=== PATIENT | female | born 1960 | race American Indian/Alaskan Native ===

== ENCOUNTER 2019-10-14 09:09 | Outpatient (CLI) | payer MEDICAID ==
--- NOTE | 2019-10-14 10:12 | Mammography Report ---
DIGITAL SCREENING MAMMOGRAM WITH CAD, 10/14/2019 INDICATION: Routine screening mammography. ROUTINE TECHNIQUE: Digital bilateral 2D mammography was obtained in the craniocaudal and mediolateral obliq ue projections. This examination was interpreted with the benefit of Computer-Aided Detection analysi s. COMPARISON: None. Patient has reportedly not had a mammogram in several years per the sign in sheet. FINDINGS: Breast Density: There are scattered areas of fibroglandular density. There is no evidence of suspicious calcifications or architectural distortion in either breast. There is however a 6 mm nodule in the left breast, posterior depth, 12:00 position. A couple other nodules in the left breast are present with biopsy clips. IMPRESSION: Follow up recommendation: Ultrasound Category 0: Incomplete. Needs additional imaging evaluation and/or prior mammograms for comparison. A "normal" or negative report should not discourage follow up or biopsy of a clinically significant f inding. A written summary of these findings will be mailed to the patient. The patient will be entered into a mammography reporting system which will generate a reminder letter for the patient's next appointmen t at the appropriate interval. The [employer] recommends yearly mammograms starting at age 40 and continuing as l colette as a woman is in good health. Breast MRI is recommended for women with an approximate 20-25% or greater lifetime risk of breast cancer, including women with a strong family history of breast or ova jeannine cancer or who have been treated for Hodgkin's disease. Signer Name: Torey Mathias MD Signed: 10/14/2019 10:08 AM Workstation Name: [id number]
== END 2019-10-14 09:10 | disposition home or self-care (01) ==
LOC: MAMMO 09:09
PROVIDERS: ATTEND Internal Medicine
DX: Z12.31 Encounter for screening mammogram for malignant neoplasm of breast (principal); N64.89 Other specified disorders of breast
CPT/HCPCS: 77067

== ENCOUNTER 2019-11-11 08:30 | Outpatient (CLI) | payer MEDICAID ==
--- NOTE | 2019-11-11 13:03 | Ultrasound Report ---
LEFT DIGITAL DIAGNOSTIC MAMMOGRAM WITH CAD 11/11/2019 LEFT LIMITED BREAST ULTRASOUND INDICATION: [id number] abnormal and inconclusive findings on diagnostic imagi TECHNIQUE: Digital left mammographic imaging was performed. Spot compression views were obtained. Li mited ultrasound was performed. This examination was interpreted with the benefit of Computer-Aided D etection (CAD) analysis. COMPARISON: Recent screening mammogram, 10/14/2019 FINDINGS: Breast Density: There are scattered areas of fibroglandular density. MAMMOGRAPHIC FINDINGS: There is a 7 mm well-circumscribed round nodule in the left breast at 12:00, close to the chest wall. ULTRASOUND FINDINGS: Targeted ultrasound evaluation was performed of the area of interest. There is a 6 mm smoothly marginated oval solid mass in the left breast at 11-12:00 7 cm deep to the nipple. T his appears to correlate with benign-appearing nodule noted mammographically. The overall appearance is most suggestive of a benign fibroadenoma. IMPRESSION: Probably benign solid oval mass in the left breast, 11-12:00. I suspect this will be a fi broadenoma. As there are no older prior mammograms for comparison, recommend 6 month follow-up left m ammogram to assess stability. Follow up recommendation: Left 6 month follow-up mammogram BI-RADS Category 3: Probably Benign. Followup in 6 months. A "normal" or negative report should not discourage follow up or biopsy of a clinically significant f inding. A written summary of these findings will be mailed to the patient. The patient will be entered into a mammography reporting system which will generate a reminder letter for the patient's next appointmen t at the appropriate interval. According to the [employer], yearly mammograms are recommended starting at age 40 and continuing as long as a woman is in good health. Breast MRI is recommended for women with an shaylee roximately 20-25% or greater lifetime risk of breast cancer, including women with a strong family his tory of breast or ovarian cancer and women who have been treated for Hodgkin's disease. Signer Name: Ella Gudino MD Signed: 11/11/2019 12:59 PM Workstation Name: [email or web address]
== END 2019-11-11 08:31 | disposition home or self-care (01) ==
LOC: US 08:30
PROVIDERS: ATTEND Internal Medicine
DX: N63.22 Unspecified lump in the left breast, upper inner quadrant (principal)

== ENCOUNTER 2020-05-09 08:54 | Outpatient (CLI) | payer MEDICAID ==
--- NOTE | 2020-05-09 10:10 | Ultrasound Report ---
LEFT DIGITAL DIAGNOSTIC MAMMOGRAM WITH CAD CONVENTIONAL, 05/09/2020 LEFT LIMITED BREAST ULTRASOUND CLINICAL INFORMATION / INDICATION: Patient presents for six-month follow-up of a probably benign nod ule in the left breast. TECHNIQUE: Digital left mammographic imaging was performed. Limited ultrasound was performed. This ex amination was interpreted with the benefit of Computer-Aided Detection (CAD) analysis. COMPARISON: Prior mammogram 10/14/2019 and left breast ultrasound 11/11/2019 FINDINGS: Breast Density: There are scattered areas of fibroglandular density. MAMMOGRAPHIC FINDINGS: There is a stable 6 mm nodular density seen in the 11 to 12:00 position of the left breast, posterior depth. Additional nodular densities with associated biopsy clips in the left breast are unchanged. There has been no significant change compared with the prior examination. ULTRASOUND FINDINGS: Targeted ultrasound evaluation was performed of the area of interest. There is a stable oval circumscribed hypoechoic mass in the left breast 12:00 position located 9 cm from the nipple, currently measuring up to 7 x 3 x 4 mm, previously 6 x 3 x 5 mm. An additional [address] is seen in the 11:30 position located 3 cm from the nipple. IMPRESSION: 1. An oval circumscribed hypoechoic mass in the 12:00 left breast is unchanged from prior examination and remains probably benign, most likely representing a fibroadenoma. Recommend left breast ultrasou nd in 6 months to ensure ongoing stability, at which time patient will be due for bilateral mammogram . Follow up recommendation: Short term follow up in 6 months. BI-RADS Category 3: Probably Benign. Followup in 6 months. A "normal" or negative report should not discourage follow up or biopsy of a clinically significant f inding. A written summary of these findings will be mailed to the patient. The patient will be entered into a mammography reporting system which will generate a reminder letter for the patient's next appointmen t at the appropriate interval. According to the [employer], yearly mammograms are recommended starting at age 40 and continuing as long as a woman is in good health. Breast MRI is recommended for women with an shaylee roximately 20-25% or greater lifetime risk of breast cancer, including women with a strong family his tory of breast or ovarian cancer and women who have been treated for Hodgkin's disease. Signer Name: Millie Persaud MD Signed: 05/09/2020 10:05 AM Workstation Name: [email or web address]
== END 2020-05-09 08:55 | disposition home or self-care (01) ==
LOC: SPVWC 08:54
PROVIDERS: ATTEND Surgery
DX: N63.21 Unspecified lump in the left breast, upper outer quadrant (principal); R92.2 Inconclusive mammogram

== ENCOUNTER 2020-11-16 09:40 | Outpatient (CLI) | payer MEDICAID ==
--- NOTE | 2020-11-16 11:04 | Ultrasound Report ---
BILATERAL DIGITAL DIAGNOSTIC MAMMOGRAM WITH CAD WITH TOMOSYNTHESIS -- 11/16/2020 LEFT LIMITED BREAST ULTRASOUND INDICATION: Six-month follow-up of left breast nodules. TECHNIQUE: Digital bilateral mammographic imaging was performed. Limited ultrasound was performed. T his examination was interpreted with the benefit of Computer-Aided Detection (CAD) analysis. COMPARISON: Left breast ultrasound and diagnostic left mammogram performed on 05/09/2020 FINDINGS: Breast Density: There are scattered areas of fibroglandular density. MAMMOGRAPHIC FINDINGS: There is no evidence of dominant mass, suspicious calcifications or architectural distortion in the r ight breast. Previous biopsy nodular densities in the left breast are unchanged. A nodular density located posteri stacey in the 12:00 position is also unchanged. No other significant abnormality of the left breast. ULTRASOUND FINDINGS: Targeted ultrasound evaluation was performed of the area of interest. There is a stable nodule located in the 12:00 position posteriorly measuring 6 x 3 x 5 mm. A previously repor paco cyst in the 11:30 position 3 cm from the nipple is larger and appears more solid, measuring 4.5 x 3.0 x 4.1 mm, previously 2.9 x 2.1 x 3.1 mm. No internal color flow or posterior acoustic shadowing is seen. IMPRESSION: Interval enlargement and more solid appearance of a previously described cyst in the 11:30 position o f the left breast. Biopsy with ultrasound guidance is recommended for further evaluation. No other si gnificant interval changes. Follow up recommendation: Biopsy BI-RADS Category 4: Suspicious for Malignancy. A "normal" or negative report should not discourage follow up or biopsy of a clinically significant f inding. A written summary of these findings will be mailed to the patient. The patient will be entered into a mammography reporting system which will generate a reminder letter for the patient's next appointmen t at the appropriate interval. According to the [employer], yearly mammograms are recommended starting at age 40 and continuing as long as a woman is in good health. Breast MRI is recommended for women with an shaylee roximately 20-25% or greater lifetime risk of breast cancer, including women with a strong family his tory of breast or ovarian cancer and women who have been treated for Hodgkin's disease. Signer Name: Danie Suero MD Signed: 11/16/2020 11:00 AM Workstation Name: [id number]
== END 2020-11-16 09:41 | disposition home or self-care (01) ==
LOC: SPVWC 09:40
PROVIDERS: ATTEND Surgery
DX: N60.02 Solitary cyst of left breast (principal); R92.2 Inconclusive mammogram
CPT/HCPCS: 77066

== ENCOUNTER 2021-09-20 09:28 | Outpatient (CLI) | payer MEDICAID ==
[2021-09-20 12:45] LABS: Calcium 9.8 mg/dL (8.4-10.2)
== END 2021-09-20 09:29 | disposition home or self-care (01) ==
LOC: LABHHL 09:28
PROVIDERS: ATTEND Internal Medicine
DX: E11.9 Type 2 diabetes mellitus without complications (principal); N28.9 Disorder of kidney and ureter, unspecified
CPT/HCPCS: 36415; 80048; 83036